=== PATIENT | male | born 1950 | race Caucasian/White ===

== ENCOUNTER → 2021-02-24 09:36 | Outpatient (BNVA) | payer OTHER, SELFPAY | PROVIDERS: Visit Provider Urology ==

== ENCOUNTER → 2021-03-26 13:09 | Outpatient (BNVA) | payer OTHER, SELFPAY | PROVIDERS: Visit Provider Urology ==

== ENCOUNTER → 2021-04-14 08:33 | Outpatient (BNVA) | payer OTHER, SELFPAY | PROVIDERS: Visit Provider Urology | DX: C61 Malignant neoplasm of prostate (principal) | CPT/HCPCS: 96402; J9217 ==

== ENCOUNTER 2021-05-18 07:39 | Outpatient (REF) | payer OTHER, SELFPAY ==
[2021-05-18 08:04] VITALS: BP 140/92; PULSE 75; RESP 16; TEMP 486.5; TEMP 907.7; O2SAT 97; BMI 29.9
[2021-05-18 08:36] VITALS: BP 136/95; PULSE 77; RESP 16; O2SAT 97
--- NOTE | 2021-05-18 08:40 | W.PM.OPN ---
Operative Note Operative Note Date of Service: 05/18/21 Narrative: Preoperative diagnosis: Prostate cancer Postoperative diagnosis: Prostate cancer Procedure: 1. Transrectal ultrasound-guided pudendal nerve block 2. Transrectal ultrasound-guided gold seed placement Surgeon: Dr. Tato Alvarenga Anesthetic: Local Indications for procedure: Prostate Cancer Procedure: After informed consent was verified, the patient was brought into the procedure area and lay left-hand side down on the table. Patient identity confirmed. Perioperative antibiotics confirmed. Gel was placed per rectum Ultrasound probe was placed per rectum A ultrasound-guided pudendal nerve block was performed using 10 cc of 1% lidocaine. 8 cc was placed at the base and 2 cc of the apex. 2 visicoil seed markers placed. 1 on the right, 1 on the left. The purpose is for triangulation. He tolerated the procedure well. Was able to ambulate to bathroom after 5 minutes. Printed instructions regarding antibiotic use and common side effects such as low-grade temperature and bleeding were given
== END 2021-05-18 07:40 | disposition home or self-care (01) ==
LOC: HO.MS 07:39
PROVIDERS: Visit Provider Urology
PROC: (CPT 55876; principal; 2021-05-18 08:00)
DX: C61 Malignant neoplasm of prostate (principal)
CPT/HCPCS: 55876; 76942; A4648

== ENCOUNTER → 2021-08-18 09:48 | Outpatient (BNVA) | payer OTHER, SELFPAY | PROVIDERS: Visit Provider Urology | DX: Z13.89 Encounter for screening for other disorder (principal) ==

== ENCOUNTER 2021-11-09 11:16 | Outpatient (REF) | payer OTHER, SELFPAY ==
[2021-11-09 12:29] LABS: Blood Urea Nitrogen 16 mg/dL (9-16); Estimated Glomerular Filt Rate > 60
[2021-11-09 12:53] LABS: Prostate Specific Antigen 0.17 ng/mL (<0.05-4.0)
[2021-11-15 12:02] LABS: Testosterone, Total 9 ng/dL (250-1100)
== END 2021-11-09 11:17 | disposition home or self-care (01) ==
LOC: HO.LAB 11:16
PROVIDERS: PCP Urology; Visit Provider Urology
DX: Z12.5 Encounter for screening for malignant neoplasm of prostate (principal); C61 Malignant neoplasm of prostate; R39.15 Urgency of urination
CPT/HCPCS: 36415; 82565; 84153; 84403; 84520

== ENCOUNTER 2022-03-07 08:16 | Outpatient (REF) | payer OTHER, SELFPAY ==
[2022-03-07 10:07] LABS: Prostate Specific Antigen 0.16 ng/mL (<0.05-4.0)
[2022-03-13 13:39] LABS: Testosterone, Total 189 ng/dL (250-1100)
== END 2022-03-07 08:17 | disposition home or self-care (01) ==
LOC: HO.LAB 08:16
PROVIDERS: Visit Provider Urology
DX: Z12.5 Encounter for screening for malignant neoplasm of prostate (principal); C61 Malignant neoplasm of prostate
CPT/HCPCS: 36415; 84153; 84403

== ENCOUNTER → 2022-03-22 08:48 | Outpatient (BNVA) | payer OTHER, SELFPAY | PROVIDERS: Visit Provider Urology | DX: C61 Malignant neoplasm of prostate (principal) | CPT/HCPCS: 99212 ==

== ENCOUNTER 2022-06-23 09:42 | Outpatient (REF) | payer OTHER, SELFPAY ==
--- NOTE | ~2022-06-23 | XR_ITS ---
EXAMINATION: XR CHEST 2 VIEWS CLINICAL INFORMATION: Follow-up pleural effusion. COMPARISON: Chest radiographs dated 04/15/2022. TECHNIQUE: Frontal and lateral views of the chest were obtained. FINDINGS: The heart, great vessels, pulmonary vasculature and mediastinum are normal. A right pericardial fat pad is again seen. A very small right pleural effusion is again seen. No left pleural effusion is seen. No infiltrate or congestive heart failure is seen. There is no acute osseous abnormality. There is multi-level thoracic degenerative change. XR/XR chest 2V IMPRESSION: A very small right pleural effusion is redemonstrated.
== END 2022-06-23 09:43 | disposition home or self-care (01) ==
LOC: HO.XRAY 09:42
PROVIDERS: Visit Provider Internal Medicine
DX: J90 Pleural effusion, not elsewhere classified (principal); R05.9 Cough, unspecified; F17.200 Nicotine dependence, unspecified, uncomplicated
CPT/HCPCS: 71046; 99202

== ENCOUNTER 2022-07-11 09:06 | Outpatient (REF) | payer OTHER, SELFPAY ==
[2022-07-11 11:15] LABS: Prostate Specific Antigen 0.19 ng/mL (<0.05-4.0)
== END 2022-07-11 09:07 | disposition home or self-care (01) ==
LOC: HO.LAB 09:06
PROVIDERS: Visit Provider Urology
DX: C61 Malignant neoplasm of prostate (principal); Z12.5 Encounter for screening for malignant neoplasm of prostate
CPT/HCPCS: 36415; 84153

== ENCOUNTER 2022-07-20 11:45 | Outpatient (REF) | payer OTHER, SELFPAY | END 2022-07-20 11:46 | disposition home or self-care (01) | LOC: HO.RESP 11:45 | PROVIDERS: Visit Provider Internal Medicine | DX: J90 Pleural effusion, not elsewhere classified (principal); C61 Malignant neoplasm of prostate; R05.9 Cough, unspecified; F17.200 Nicotine dependence, unspecified, uncomplicated; Z79.899 Other long term (current) drug therapy | CPT/HCPCS: 94010; 94727; 94729; 99212 ==

== ENCOUNTER → 2022-08-16 08:57 | Outpatient (BNVA) | payer OTHER, SELFPAY | PROVIDERS: Visit Provider Internal Medicine | DX: J44.9 Chronic obstructive pulmonary disease, unspecified (principal); J90 Pleural effusion, not elsewhere classified; R05.9 Cough, unspecified; F17.210 Nicotine dependence, cigarettes, uncomplicated | CPT/HCPCS: 99212 ==

== ENCOUNTER 2022-10-27 09:11 | Outpatient (REF) | payer OTHER, SELFPAY ==
[2022-10-27 11:28] LABS: Prostate Specific Antigen 0.21 ng/mL (<0.05-4.0)
== END 2022-10-27 09:12 | disposition home or self-care (01) ==
LOC: HO.LAB 09:11
PROVIDERS: Visit Provider Urology
DX: Z12.5 Encounter for screening for malignant neoplasm of prostate (principal); J90 Pleural effusion, not elsewhere classified; J44.9 Chronic obstructive pulmonary disease, unspecified; R05.9 Cough, unspecified; C61 Malignant neoplasm of prostate; F17.200 Nicotine dependence, unspecified, uncomplicated
CPT/HCPCS: 36415; 84153; 99212

== ENCOUNTER 2022-10-27 09:11 | Outpatient (AMB) | payer OTHER, SELFPAY ==
[2022-10-27 09:30] VITALS: BP 134/68; PULSE 64; O2SAT 96; BMI 31.5
--- NOTE | 2022-10-27 09:30 | MHC.OFFVIS ---
Intake Vital Signs 10/27/22 09:30 Height 6 ft Weight 232 lb 9.403 oz BMI 31.5 BP 134/68 Blood Pressure Location Lt brachial Position Sitting Pulse 64 Pulse Source Pulse Oximeter Pulse Oximetry (%) 96 Oxygen Delivery Method Room Air Intake Visit Reasons: Cough Intake Note: Pt presents today with his for a fu and reports everything is going well. They have a few questions about his prescriptions. His would like to know if he is ready for a lower prescription of his nicotine patches. Allergies No Known Allergies Allergy (Verified 10/27/22 10:03) Medication List - Last Reconciled 10/27/22 by Pool Barrera MD budesonide-formoterol 160-4.5 mcg/actuation (Symbicort) 2 puffs inhalation Q12H 30 days finasteride 5 mg PO DAILY 90 days lisinopril 20 mg PO DAILY lisinopril-hydrochlorothiazide 20-12.5 mg 1 tab PO DAILY nicotine 1 patch transdermal DAILY 28 days pravastatin 40 mg PO DAILY vitamins A,C,R-aeqk-xmjqlu 4,296 mcg-226 mg-90 mg (PreserVision AREDS) 1 cap PO BID Do you need a note to return to daycare/school/sports/work: No HPI Cough HPI Details THIS 72 YEARS OLD , WITH PAST HISTORY OF SMOKING, COMES FOR FOLLOW-UP, AFTER 3 MONTHS. SINCE HIS LAST VISIT HE HAS QUIT SMOKING WITH THE HELP OF NICOTINE PATCH 21 MG DAILY. HE STILL PICKS UP THE CIGARETTE EVERY NOW AND THEN TO SMOKE. BREATHING STATUS HAS BEEN MUCH BETTER, HE STILL HAS MILD INTERMITTENT COUGH WITHOUT ANY. EXPECTORATION HE STILL GETS SHORT OF BREATH ON EXERTION LIKE WALKING A FEW BLOCKS OR CLIMBING STAIRS. THE MAIN ISSUE IS THAT HE DID NOT GET HIS SYMBICORT THROUGH [place] [facility], AND HAS BEEN BUYING FROM THE LOCAL PHARMACY, WHICH IS VERY COSTLY. [facility] Medical History COPD (chronic obstructive pulmonary disease) Cough Elevated PSA HTN (hypertension) Hx of colonic polyps Hyperlipidemia Inguinal hernia Obesity Pleural effusion Prostate nodule Smoker Thrombocytopenia Surgical History History of hernia repair Social History Patient Tobacco Use Status: Current everyday Tobacco user Cigarettes Per Day: 1 Review of Systems Const All systems reviewed & are unremarkable except as noted in HPI and below Eyes Reports no additional complaints ENT Reports nasal congestion (Mild off and on) and Reports other (Mild hearing impairment) Card Denies chest pain, Denies irregular heart rhythm and Denies leg edema Resp Reports as per HPI GI Reports no additional complaints Reports other (History of prostate cancer,) Musc Reports no additional complaints Skin/Breast Reports system reviewed and no additional complaints, except as documented Neuro Reports no additional complaints Psych Reports no additional complaints Endo Reports no additional complaints Aller/Immun Reports no additional complaints Physical Exam Vital Signs: Last Vital Signs Pulse 64 10/27/22 09:30 BP 134/68 10/27/22 09:30 Pulse Ox 96 10/27/22 09:30 Oxygen Delivery Method Room Air 10/27/22 09:30 BMI result Body Mass Index 31.5 Const General: comfortable, no acute distress, alert and awake Orientation/consciousness: patient oriented x3 HEENT Head: Yes normal to inspection General nose exam: No nasal polyps present and No nasal discharge present Face and sinus: Yes sinuses nontender Mouth: oropharynx normal Throat: Yes posterior oropharynx normal Eyes General: appearance normal, both eyes and all related structures Neck Neck: Yes normal visual inspection, Yes no lymphadenopathy, Yes trachea midline and Yes no JVD Thyroid: Thyroid normal Chest Chest palpation & inspection: normal inspection of the chest, normal palpation of entire chest wall and no tenderness Resp Other: Percussion note is resonant. Breath sounds are moderately distant with prolonged expiratory phase. No wheezes. Or crepitations are heard. Cardio Palpation: normal PMI Rate: regular rate Rhythm: regular rhythm Heart sounds: no gallops and no murmurs GI Palpation (GI): Soft to palpation, nontender, No hepatosplenomegaly present and no masses Auscultation: normal bowel sounds Back/Spine/Pelvis Thoracic/Lumbar Spine: thoracic and lumbar spine normal to inspection Skin General skin exam: no rashes or lesions noted Neuro General: patient oriented x3 and no focal motor deficits Cranial nerves: Yes CN's II-XII intact bilaterally Extrem General: Yes normal to inspection, Yes no clubbing, cyanosis or edema and Yes no calf tenderness Psych Appearance: grossly normal and well kempt Speech and movement: Normal speech and movement present Assessment & Plan Assessment & Plan (1) COPD (chronic obstructive pulmonary disease): Comment: This gentleman has MODERATELY SEVERE OBSTRUCTIVE AIRWAY DISORDER. [place] : Symptomatically, he is definitely improved with the use of Symbicort 2 puffs b.i.d.. I advised him to continue. Will send a script to [place] [facility] and hope they will cover the medicine and he can get without out of pocket charge. Code(s): J44.9 - Chronic obstructive pulmonary disease, unspecified (2) Cough: Comment: HIS COUGH IS CHRONIC MOST LIKELY RELATED TO SMOKING ( SMOKERS COUGH) Since he quit smoking his cough is only minimal. Code(s): R05.9 - Cough, unspecified (3) Smoker: Comment: LONG-TIME SMOKER, CURRENTLY SMOKING ABOUT 1 PACK OF CIGARETTES A DAY. SINCE HIS LAST VISIT WITH THE HELP OF NICOTINE PATCH, HE HAS BEEN ABLE TO QUIT, HE STILL HAS URGE TO SMOKE EVERY NOW AND THEN. ADVISED TO REDUCE NICOTINE PATCH TO 14 MG A DAY AND CONTINUE , UNTIL HE IS FULLY CONFIDENT THAT HE WOULD NOT SMOKE. Code(s): F17.200 - Nicotine dependence, unspecified, uncomplicated Coding Level of Care Code Est Pt Level 3 (25263) Diagnoses COPD (chronic obstructive pulmonary disease) J44.9 Cough R05.9 Smoker F17.200
== END 2022-10-27 10:04 | disposition home or self-care (01) ==
PROVIDERS: PCP Internal Medicine; Visit Provider Internal Medicine
DX: J44.9 Chronic obstructive pulmonary disease, unspecified (principal); R05.9 Cough, unspecified; F17.200 Nicotine dependence, unspecified, uncomplicated
CPT/HCPCS: 99213

== ENCOUNTER 2022-11-22 13:26 | Outpatient (AMB) | payer OTHER, SELFPAY ==
--- OUTSIDE RECORDS SUMMARY | 2022-11-22 13:28 | XMS_ITS | Continuity of Care Document ---
Author Name Unknown Organization [facility] Address [address] [place] [id number]- Care Team Providers Care Material Mover Name Role Phone Cliff NICK, Asael Vasquez Primary Care Physician [phone] [place] [facility] [place] [facility] [address] [place] [id number]- Discharge Disposition: A-D/C Home Attending Physician: Edgar Dhaliwal MD Admitting Physician: Edgar Dhaliwal MD Referring Physician: Tato Alvarenga MD Allergies, Adverse Reactions, Alerts No Known Allergies Medications Gloria Back & Body By Mouth, Every 6 hours, PRN Pain , Mild, 0 Refills, Maintenance, 04/12/21 12:11:00 EST, Partial fill upon patient request if the prescription is for a schedule II opioid drug. Start Date: 04/12/21 Status: Ordered bicalutamide 50 mg oral tablet 1 tablet = 50 mg, By Mouth, Daily, 0 Refills, Maintenance, 04/12/21 12:10:00 EST, Partial fill uponpatient request if the prescription is for a schedule II opioid drug. Start Date: 04/12/21 Status: Ordered Flomax 0.4 mg oral capsule 0.4 mg, 1, capsule, By Mouth, Daily, # 30 capsule, Refills 0, Tot. Refills 0, Maintenance, :00:00 EDT, Print Requisition, Partial fill upon patient request if the prescription is for a schedule II opioid drug. Start Date: 08/29/20 Status: Ordered hydrochlorothiazide 12.5 mg oral tablet 1 tablet = 12.5 mg, By Mouth, Daily, 0 Refills, Maintenance, 04/12/21 12:10:00 EST, Partial fill upon patient request if the prescription is for a schedule II opioid drug. Start Date: 04/12/21 Status: Ordered Lisinopril = 20 mg, By Mouth, Daily, 0 Refills, Maintenance, 04/12/21 12:09:00 EST, Partial fill upon patient request if the prescription is for a schedule II opioid drug. Start Date: 04/12/21 Status: Ordered pravastatin 40 mg oral tablet 1 tablet = 40 mg, By Mouth, Daily, 0 Refills, Maintenance, 04/12/21 12:10:00 EST, Partial fill uponpatient request if the prescription is for a schedule II opioid drug. Start Date: 04/12/21 Status: Ordered PreserVision AREDS 2 By Mouth, 2 times a day, 0 Refills, Maintenance, 04/12/21 12:11:00 EST, Partial fill upon patient request if the prescription is for a schedule II opioid drug. Start Date: 04/12/21 Status: Ordered Sinus Maximum Strength By Mouth, PRN Sinus Symptoms, 0 Refills, Maintenance, 04/12/21 12:12:00 EST, Partial fill upon patient request if the prescription is for a schedule II opioid drug. Start Date: 04/12/21 Status: Ordered Problem List Condition Effective Dates Status Health Status Inform ant Obese class I(Confirmed) Active Vital Signs Most recent to oldest [Reference Range]: 1 Height 178.5 cm (04/12/21 9:16 AM) Weight 97.2 kg (04/12/21 9:16 AM) Oxygen Saturation [94-100 %] 98 % (04/12/21 9:16 AM) Pulse Rate [55-90 bpm] 73 bpm (04/12/21 9:16 AM) Body Mass Index [18.5-24.99] 30.51 *>HHI* (04/12/21 9:16 AM) Blood Pressure [90-138/55-84 mm Hg] 113/ 65mm Hg (04/12/21 9:16 AM) Temperature [96.8-100.4 DegF] 96.9 DegF (04/12/21 9:16 AM) Mode of Delivery (Oxygen) Room air (04/12/21 9:16 AM) Blood pressure sites Arm, left (04/12/21 9:16 AM) Temperature Route Temporal (04/12/21 9:16 AM) Dry Weight 97.2 kg (04/12/21 9:16 AM) Weight Obtained Via Standing scale (04/12/21 9:16 AM) Dry Weight Obtained Via Standing scale (04/12/21 9:16 AM) Social History Social History Type Response Smoking Status Current every day earl chavez entered on: 04/14/16 Sex Care Team Personnel Name: Asael Coronado MD Address: [address] [place] [address]-
--- OUTSIDE RECORDS SUMMARY | 2022-11-22 13:28 | XMS_ITS | Continuity of Care Document ---
Author Name Unknown Organization [facility] Address [address] [place] [address]- Care Team Providers Care Disease Control Inspector Name Role Phone Cliff NICK, Asael Vasquez Primary Care Physician Encounter [facility] [place] Date(s): 03/30/21 - 04/29/21 [facility] [address] [place] [address]- Attending Physician: Nicanor Mccall Admitting Physician: AdmNicanor hermosillo Referring Physician: Admtr, Ar8 Allergies, Adverse Reactions, Alerts No Known Allergies [...] Status Inform ant Obese class I(Confirmed) Active Social History Social History Type Response Smoking Status Current every day earl chavez entered on: 04/14/16 Sex
--- OUTSIDE RECORDS SUMMARY | 2022-11-22 13:28 | XMS_ITS | Continuity of Care Document ---
Author Name Unknown Organization [facility] Address [address] [place] [address]- Care Team Providers Care Waiter/Waitress First Class Name Role Phone Cliff NICK, Asael Vasquez Primary Care Physician [phone] [place] [facility] [place] 04/12/21 - 05/12/21 [facility] Care [address] [place] [address] Allergies, Adverse Reactions, Alerts No Known Allergies [...]
--- NOTE | 2022-11-22 13:35 | A.OFFVIS_ITS ---
Intake Intake Visit Reasons: 4m/PSA(set) Intake Note: Patient is present for Telephone PSA Urology Med: Finasteride Antibiotic Allergy: None Blood Thinner: None Pharmacy: [facility] Allergies No Known Allergies Allergy (Verified 11/22/22 13:36) HPI HPI Comments History of Present Illness Details Ephraim is a very pleasant male. He is a patient of Dr Coronado. He is seen in the office today for the following urologic conditions. - prostate cancer Telemedicine Evaluation 15 min Consultation Doximity Noel Video attempted PSA remains well controlled - 0.2 Continue 4 month follow-up till 2023 Prostate cancer 07/07 Intermediate Risk Grade Group 3- EXBRT 08/08 with short term hormones PSA 03/09 7.5 F 9%, 11/08 0.2 T9, 03/10 0.2 T 190, 07/10 0.2, 11/09 0.2 Initial evaluation for elevated PSA 04/08 Prostate biopsy performed 07/07 - primary Neha score 4+3 Neha score 3+3 5% right apex medial, 3+4 90% right apex lateral, 80% right mid lateral, 60% right mid medial, 80% right base lateral, 4+3 70% right base medial Number of positive cores 6 - % of tissue involved 32% Perineural invasion positive, LVI negative Imaging - 03/09 MRI CDI - right apical zone 1.5 cm PI-RADS 5 no evidence of extracapsular extension External Beam Radiation - 08/08 Dr Dhaliwal Therapeutic plan - PSA followup [facility] Medical History COPD (chronic obstructive pulmonary disease) Cough Elevated PSA HTN (hypertension) Hx of colonic polyps Hyperlipidemia Inguinal hernia Obesity Pleural effusion Prostate nodule Smoker Thrombocytopenia Surgical History History of hernia repair Social History Patient Tobacco Use Status: Current everyday Tobacco user Cigarettes Per Day: 1 Review of Systems Const All systems reviewed & are unremarkable except as noted in HPI and below Reports no additional complaints Resp Reports no additional complaints GI Reports no additional complaints Reports as per HPI Musc Reports no additional complaints Physical Exam Telemedicine evaluation Appropriate responses Regular breathing rate and rhythm HEENT Head: Yes normal to inspection Ears: hearing grossly normal bilaterally Eyes General: appearance normal, both eyes and all related structures Neck Neck: Yes normal visual inspection Chest Chest palpation & inspection: normal inspection of the chest Resp Effort & Inspection: normal respiratory effort and able to speak in complete sentences Assessment & Plan Assessment & Plan (1) Prostate cancer: Comment: 07/07 intermediate risk prostate cancer 08/08 EXBRT w 6m GnRH Code(s): C61 - Malignant neoplasm of prostate Plan Four month follow-up Orders: Orders Prostate Specific Antigen 4 Months C61 - Malignant neoplasm of prostate Patient Instructions: Imaging studies, laboratory and physical exam results were discussed and reviewed in detail. No major barriers to patient understanding were identified. An opportunity to ask questions regarding the treatment plan was provided. All questions were answered. The patient expressed understanding and agreement with the above treatment plan. The patient is aware they should contact our office by phone for worsening of their current condition or the appearance of new urologic symptoms. Compliance is encouraged with any medications and followup testing that is ordered. It is a privilege to participate in the urologic care of your patient. If you have any questions or concerns regarding treatment for the above conditions, or other urologic issues, please do not hesitate to contact me. The office telephone contact is [phone]. This note is constructed using voice recognition software. While every effort has been made to ensure accuracy lockstitch lining maker errors may have been included. Yours sincerely, Dr Tato Alvarenga MD, [facility] - Urology Providers of Expert, Compassionate Care for the Genitourinary System Telehealth Telehealth Location of provider rendering services: practice address Location of patient: address on file Patient Identification confirmed using: Name, : Yes Telehealth method: video Patient verbally consented to treatment: Yes Patient verbally consented to billing insurance company: Yes Patient informed of any privacy concerns related to visit: Yes Coding Level of Care Code Tele Est Pt Level 3 (01259) Diagnoses Prostate cancer C61
== END 2022-11-22 14:19 | disposition home or self-care (01) ==
LOC: HO.HUSH 13:26
PROVIDERS: Visit Provider Urology
DX: C61 Malignant neoplasm of prostate (principal)
CPT/HCPCS: 99213

== ENCOUNTER → 2022-11-22 13:26 | Outpatient (BNVA) | payer OTHER, SELFPAY | PROVIDERS: Visit Provider Urology ==

== ENCOUNTER 2023-01-17 07:39 | Day surgery (SDC) | payer OTHER, SELFPAY ==
[2023-01-13 10:44] VITALS: BMI 31.2
--- NOTE | 2023-01-17 08:02 | ECG_ITS ---
Test Reason : pre op Blood Pressure : / mmHG Vent. Rate : 069 BPM Atrial Rate : 069 BPM P-R Int : 190 ms QRS Dur : 150 ms QT Int : 480 ms P-R-T Axes : 051 -76 092 degrees QTc Int : 514 ms Sinus rhythm with Premature supraventricular complexes and with occasional Premature ventricular complexes Right bundle branch block Left anterior fascicular block Bifascicular block Left ventricular hypertrophy with repolarization abnormality ( R in aVL , Romhilt-Polanco ) Abnormal ECG No previous ECGs available Referred By: Bridger Kolb Electronically Signed By:AGUS STEPHENS MD
[2023-01-17 08:05] VITALS: BP 145/88; PULSE 73; RESP 16; TEMP 36.1; O2SAT 96; BMI 30.6
[2023-01-17 08:19] LABS: Hematocrit 42.2 % (42.0-52.0); Hemoglobin 13.9 g/dl (14.0-18.0); Mean Corpuscular HGB Conc 32.9 g/dl (31.0-36.0); Mean Corpuscular Hemoglobin 30.3 pg (27.0-33.0); Mean Corpuscular Volume 92.1 fL (80.0-98.0); Mean Platelet Volume 10.3 fL (9.4-12.4); Platelet Count 242 X10*3/uL (160-400); Red Blood Count 4.58 X10*6/uL (4.60-5.80); Red Cell Distribution Width 14.3 % (11.0-16.0); White Blood Count 5.5 X10*3/uL (4.8-10.8)
--- NOTE | 2023-01-17 08:20 | P.CONAN_ITS ---
Documented by User: Jamila Duarte NP 01/16/23 09:46 HPI - Anesthesia Eval Consult details Narrative: 72yo M for Colonoscopy PMFSH Active Problems Active Problems: All Active Problems BPH loc w urin obs/LUTS (Acute) Prostate cancer (Acute) COPD (chronic obstructive pulmonary disease) (Acute) Pleural effusion (Acute) Cough (Acute) Smoker (Acute) Past Medical History Medical History COPD (chronic obstructive pulmonary disease) Pleural effusion Cough Smoker Thrombocytopenia Obesity HTN (hypertension) Hyperlipidemia Hx of colonic polyps Inguinal hernia Elevated PSA Prostate nodule Surgical History Surgical History (Updated 01/13/23 @ 10:38 by Lucila Loya RN) H/O colonoscopy History of hernia repair Social History Social History Patient Tobacco Use Status: Current everyday Tobacco user Tobacco use type: Cigarette Cigarettes Per Day: 5 Years Smoked: 50 Smoked in Last 30 Days: Yes Use of substances other than those prescribed or required for medical reasons: Yes Substance Use Frequency: Occasionally Are you DNR?: No Advance Directives: No Advance Directives Information Provided: Yes Recently lost weight without trying: No Nutrition Risks: No Nutritional Risk Poor oral hygiene: No Meds Allergies Allergy/AdvReac Type Severity Reaction Status Date / Time No Known Allergies Allergy Verified 11/22/22 13:36 Home Medications Medication Instructions Recorded Confirmed Last Taken Type lisinopril 20 mg tablet 20 mg PO DAILY 06/23/22 08/16/22 Unknown History pravastatin 40 mg tablet 40 mg PO DAILY 06/23/22 01/13/23 Unknown History vitamins A,C,V-ygxy-xltigc 4,296 1 cap PO BID 08/16/22 01/13/23 Unknown History mcg-226 mg-90 mg capsule (PreserVision AREDS) lisinopril 20 1 tab PO DAILY 10/27/22 01/13/23 Unknown History mg-hydrochlorothiazide 12.5 mg tablet Exam Exam Date and Time: January 16, 2023 0944 Height,Weight and Vital Signs: Height 6 ft Weight 104.326 kg Assessment and Plan Assessment Anesthesia Assessment: Chart Reviewed Documented by User: Eli Killian DO 01/17/23 08:53 HPI - Anesthesia Eval Consult details Narrative: 72yo M for Colonoscopy. Ectopy seen on telemetry in pre-op. Patient is asymptomatic. EKG performed - PVCs, LVH, and bifascicular block (RBBB, LAFB). Discussed with patient regarding follow-up with PCP for possible further cardiac work-up. [facility] Past Medical History Medical History COPD (chronic obstructive pulmonary disease) Pleural effusion Cough Smoker Thrombocytopenia Obesity HTN (hypertension) Hyperlipidemia Hx of colonic polyps Inguinal hernia Elevated PSA Prostate nodule Surgical History Surgical History (Updated 01/13/23 @ 10:38 by Lucila Loya RN) H/O colonoscopy History of hernia repair History of Problems with Anesthesia: No Social History Social History Patient Tobacco Use Status: Current everyday Tobacco user Tobacco use type: Cigarette Cigarettes Per Day: 5 Years Smoked: 50 Smoked in Last 30 Days: Yes Use of substances other than those prescribed or required for medical reasons: Yes Substance Use Frequency: Occasionally Are you DNR?: No Advance Directives: No Advance Directives Information Provided: Yes Recently lost weight without trying: No Nutrition Risks: No Nutritional Risk Poor oral hygiene: No Meds Allergies Allergy/AdvReac Type Severity Reaction Status Date / Time No Known Allergies Allergy Verified 11/22/22 13:36 Home Medications Medication Instructions Recorded Confirmed Last Taken Type lisinopril 20 mg tablet 20 mg PO DAILY 06/23/22 08/16/22 Unknown History pravastatin 40 mg tablet 40 mg PO DAILY 06/23/22 01/13/23 Unknown History vitamins A,C,S-poow-eesrif 4,296 1 cap PO BID 08/16/22 01/13/23 Unknown History mcg-226 mg-90 mg capsule (PreserVision AREDS) lisinopril 20 1 tab PO DAILY 10/27/22 01/13/23 Unknown History mg-hydrochlorothiazide 12.5 mg tablet Exam Exam Date and Time: January 17, 2023 0820 Height,Weight and Vital Signs: Height 6 ft Weight 104.326 kg Vital Signs Temperature 97.0 F 01/17/23 08:05 Pulse Rate 73 01/17/23 08:05 Respiratory Rate 16 01/17/23 08:05 Blood Pressure 145/88 H 01/17/23 08:05 Pulse Oximetry 96 01/17/23 08:05 Oxygen Delivery Method Room Air 01/17/23 08:05 Temperature 97.0 F 01/17/23 08:05 Pulse Rate 73 01/17/23 08:05 Respiratory Rate 16 01/17/23 08:05 Blood Pressure 145/88 H 01/17/23 08:05 Pulse Oximetry 96 01/17/23 08:05 Oxygen Delivery Method Room Air 01/17/23 08:05 Airway Mallampati Class: II TM Dist: >3cm Neck ROM: Full Denture: Upper Heart: S1S2 Lungs: Diminished bilaterally Assessment and Plan Assessment Anesthesia Assessment: Anesthesia Plan Discussed and Chart Reviewed Final Anesthetic Review History of Problems with Anesthesia: No NPO: Yes ASA Class: III Final Preanesthetic Review: No Changes in Pt Med Stat, Meds/Allgs Chart Reviewed, Consent Obtained/Reviewed and Anes Risks/Benef Reviewed Patient Risk: Intermediate Procedure Risk: Low Anesthetic Plan Anesthetic Plan: MAC: and Agree w/ Assess. and Plan Disposition: Standard PACU
[2023-01-17] MEDS: Lactated Ringers 1,000 ML 100 ML IVCONT (08:51)
--- NOTE | 2023-01-17 09:12 | MHC.SHP ---
Pre-Procedural Eval Section A Date of Service: 01/17/23 Section B Chief Complaint: screening Details of Present Illness: see H&P no changes Relevant Family History (Specify if Yes): No Relevant Social History: None Present Medications: see Short Stay Collaborative assessment Medical History: No relevant PMH History of Previous Operations: No relevant previous surgery Allergies: Allergies Allergy/AdvReac Type Severity Reaction Status Date / Time No Known Allergies Allergy Verified 11/22/22 13:36 Review of Systems Sugical H&P ROS: Negative: Constitution, Cardiovascular, Respiratory, Neurological, Psychiatric, Hem-Onc, Allergic/Immunologic, Gastrointestinal, Genitourinary, Musculoskeletal, Integumentary, Endocrine and Eyes/Ears/Nose/Throat Exam Surgical H&P Exam: Normal: HEENT, Normal: Heart, Normal: Lungs, Normal: Extremities, Normal: Abdomen, Normal: Skin and Normal: Neurological Plan Diagnosis/Plan: Unchanged I have reviewed the history and physical and performed a pertinent physical examination on my patient. No changes have occurred unless specified. Time Spent With Patient Time: Total time managing care of this patient today ____ minutes.
[2023-01-17 09:40] VITALS: BP 106/63; PULSE 62; RESP 16; TEMP 36.5; O2SAT 96
--- NOTE | 2023-01-17 09:49 | P.BOP_ITS ---
Brief Operative Note Date of Service: 01/17/23 Pre-op diagnosis: see H&P no changes Post-op diagnosis: same Procedure: colonoscopy Surgeon: Amrit Kong MD Anesthesia: MAC Was an Financial Services Officer used for this Procedure?: No Estimated blood loss (mL): 0 Pathology: other Condition: stable Disposition: PACU
[2023-01-17 09:54] VITALS: BP 109/76; PULSE 64; RESP 16; TEMP 36.5; O2SAT 96
--- NOTE | 2023-01-17 10:20 | OP_ITS ---
DATE OF SERVICE: 01/17/2023 SURGEON: Amrit Kong MD INDICATIONS: Colon cancer screening. PREOPERATIVE DIAGNOSIS: POSTOPERATIVE DIAGNOSIS: PROCEDURE PERFORMED: Colonoscopy to the terminal ileum. ESTIMATED BLOOD LOSS: COMPLICATIONS: ANESTHESIA: Medications, monitored anesthesia care. ASSISTANTS: SPECIMENS: DESCRIPTION OF PROCEDURE: The history and physical performed. The risks and benefits of the procedure were explained to the patient. An informed consent was obtained. The patient was placed in the left lateral decubitus position. A digital rectal exam was performed and was found to be normal. The Olympus pediatric video colonoscope was introduced into the rectum and advanced to the cecum. The cecum was identified by transillumination, palpation, and identification of the ileocecal valve. Examination was performed. The scope was removed. He tolerated the procedure well and was taken to recovery area in stable condition. FINDINGS: The terminal ileum was examined and appeared normal. The visualized colonic mucosa was normal. The quality of the prep was good. There was mild sigmoid diverticulosis. Retroflexed examination was normal. There were changes consistent with possible radiation in the rectum with telangiectasias but no active colitis. IMPRESSION: Normal colonoscopy. RECOMMENDATION: 1. Repeat colonoscopy is recommended in 10 years. 2. Follow up as needed. MD CAMILA Kothari/IRENEL / [phone]
== END 2023-01-17 10:34 | disposition home or self-care (01) ==
PROVIDERS: Nurse Practitioner; Visit Provider Internal Medicine Gastroenterology
PROC: 0DJD8ZZ Inspection of Lower Intestinal Tract, Via Natural or Artificial Opening Endoscopic (ICD-10-PCS; CPT 45378; principal; 2023-01-17 09:00)
DX: Z12.11 Encounter for screening for malignant neoplasm of colon (principal); Z86.010 Personal history of colon polyps; K57.30 Diverticulosis of large intestine without perforation or abscess without bleeding; J44.9 Chronic obstructive pulmonary disease, unspecified; I10 Essential (primary) hypertension; E78.5 Hyperlipidemia, unspecified; D69.6 Thrombocytopenia, unspecified; J90 Pleural effusion, not elsewhere classified; E66.9 Obesity, unspecified; Z68.31 Body mass index [BMI] 31.0-31.9, adult; F17.210 Nicotine dependence, cigarettes, uncomplicated; Z79.51 Long term (current) use of inhaled steroids; Z79.1 Long term (current) use of non-steroidal anti-inflammatories (NSAID); Z79.899 Other long term (current) drug therapy
CPT/HCPCS: 45378; 36415; 85027; 93005

== ENCOUNTER 2023-04-11 10:12 | Outpatient (REF) | payer OTHER, SELFPAY ==
[2023-04-11 12:26] LABS: Prostate Specific Antigen 0.13 ng/mL (<0.05-4.0)
== END 2023-04-11 10:13 | disposition home or self-care (01) ==
LOC: HO.LAB 10:12
PROVIDERS: Visit Provider Urology
DX: C61 Malignant neoplasm of prostate (principal); Z12.5 Encounter for screening for malignant neoplasm of prostate
CPT/HCPCS: 36415; 84153

== ENCOUNTER 2023-04-19 09:07 | Outpatient (AMB) | payer OTHER, SELFPAY ==
[2023-04-19 09:14] VITALS: BP 104/82; PULSE 82; O2SAT 98; BMI 33.2
--- NOTE | 2023-04-19 09:14 | A.OFFVIS_ITS ---
Intake Vital Signs 04/19/23 09:14 Height 6 ft Weight 244 lb 11.41 oz BMI 33.2 BP 104/82 Blood Pressure Location Lt brachial Position Sitting Pulse 82 Pulse Source Pulse Oximeter Pulse Oximetry (%) 98 Oxygen Delivery Method Room Air Intake Visit Reasons: Cough Intake Note: pt is here for follow up and states he has been having some shortness of breath, but has had a cold x6 weeks, which has been off and on. not much production. pt feels that Wixela is not hleping as much and states he is getting little spots in his mouth. 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 He has history of long-time smoking, with chronic obstructive pulmonary disease. He had quit almost completely but but still smokes 1 or 2 cigarettes a day. Initially with the addition of Symbicort his cough got much better and shortness of breath had improved. Since his last visit Symbicort was changed to Wixela, 250-50 1 inhalation b.i.d.. He complains that this is not as effective as Symbicort, and according to his w jace he has some white spots in his mouth every now and then. He continues to have some cough especially in the morning or at night, which is mostly nonproductive. He gets short of breath on walking fast or up Hill or climbing 1 flight of stairs. [facility] Medical History COPD (chronic obstructive pulmonary disease) Pleural effusion Cough Smoker Thrombocytopenia Obesity HTN (hypertension) Hyperlipidemia Hx of colonic polyps Inguinal hernia Elevated PSA Prostate nodule Surgical History H/O colonoscopy History of hernia repair Social History Patient Tobacco Use Status: Current everyday Tobacco user Tobacco use type: Cigarette Cigarettes Per Day: 5 Years Smoked: 50 Review of Systems Const All systems reviewed & are unremarkable except as noted in HPI and below Eyes Reports no additional complaints ENT Reports nasal congestion (Mild off and on) and Reports other (Mild hearing impairment) Card Denies chest pain, Denies irregular heart rhythm and Denies leg edema Resp Reports as per HPI GI Reports no additional complaints Reports other (History of prostate cancer,) Musc Reports no additional complaints Skin/Breast Reports system reviewed and no additional complaints, except as documented Neuro Reports no additional complaints Psych Reports no additional complaints Endo Reports no additional complaints Aller/Immun Reports no additional complaints Physical Exam Vital Signs: Last Vital Signs Pulse 82 04/19/23 09:14 BP 104/82 04/19/23 09:14 Pulse Ox 98 04/19/23 09:14 Oxygen Delivery Method Room Air 04/19/23 09:14 BMI result Body Mass Index 33.2 Const General: comfortable, no acute distress, alert and awake Orientation/consciousness: patient oriented x3 HEENT Head: Yes normal to inspection General nose exam: No nasal polyps present and No nasal discharge present Face and sinus: Yes sinuses nontender Mouth: oropharynx normal Throat: Yes posterior oropharynx normal Eyes General: appearance normal, both eyes and all related structures Neck Neck: Yes normal visual inspection, Yes no lymphadenopathy, Yes trachea midline and Yes no JVD Thyroid: Thyroid normal Chest Chest palpation & inspection: normal inspection of the chest, normal palpation of entire chest wall and no tenderness Resp Other: Percussion note is resonant. Breath sounds are moderately distant with prolonged expiratory phase. No wheezes. A few fine crepitations over the right base, Cardio Palpation: normal PMI Rate: regular rate Rhythm: regular rhythm Heart sounds: no gallops and no murmurs GI Palpation (GI): Soft to palpation, nontender, No hepatosplenomegaly present and no masses Auscultation: normal bowel sounds Back/Spine/Pelvis Thoracic/Lumbar Spine: thoracic and lumbar spine normal to inspection Skin General skin exam: no rashes or lesions noted Neuro General: patient oriented x3 and no focal motor deficits Cranial nerves: Yes CN's II-XII intact bilaterally Extrem General: Yes normal to inspection, Yes no clubbing, cyanosis or edema and Yes no calf tenderness Psych Appearance: grossly normal and well kempt Speech and movement: Normal speech and movement present Assessment & Plan Assessment & Plan (1) COPD (chronic obstructive pulmonary disease): Comment: This gentleman has MODERATELY SEVERE OBSTRUCTIVE AIRWAY DISORDER. Symptomatically improved with the use of ICS/LABA , inhaler, but still has some residual cough. Code(s): J44.9 - Chronic obstructive pulmonary disease, unspecified Plan: Advised to continue using Wixela 250-51 inhalation b.i.d.. [place] the throat very thoroughly after using inhaler. May add small amount of Listerine of or vein ago are to the water for rinsing the throat. ProAir 2 puffs Q 4-6 hours only p.r.n.. (2) Cough: Comment: HIS COUGH IS CHRONIC MOST LIKELY RELATED TO SMOKING ( SMOKERS COUGH) Since he quit smoking his cough is improved . Code(s): R05.9 - Cough, unspecified Plan: Quit smoking completely. OK to use Robitussin syrup or use cough drops p.r.n.. ALSO ADVISE THAT HE SHOULD HAVE A VAPORIZER/HUMIDIFIER IN THE BEDROOM AT NIGHTTIME. (3) Smoker: Comment: LONG-TIME SMOKER, CURRENTLY SMOKING ABOUT 1 PACK OF CIGARETTES A DAY. SINCE HIS LAST VISIT WITH THE HELP OF NICOTINE PATCH, HE HAS BEEN ABLE TO QUIT, HE STILL SMOKES 1 OR 2 CIGARETTES PER DAY, AND I URGED HIM TO QUIT COMPLETELY. Code(s): F17.200 - Nicotine dependence, unspecified, uncomplicated Plan: as above (4) Pleural effusion: Comment: RESOLVED WITH MINIMAL FIBROTIC CHANGES AT THE RT. BASE . Code(s): J90 - Pleural effusion, not elsewhere classified Plan: ABOVE Coding Level of Care Code Est Pt Level 3 (96204) Diagnoses COPD (chronic obstructive pulmonary disease) J44.9 Cough R05.9 Smoker F17.200 Pleural effusion J90
== END 2023-04-19 09:33 | disposition home or self-care (01) ==
PROVIDERS: PCP Internal Medicine; Visit Provider Internal Medicine
DX: J44.9 Chronic obstructive pulmonary disease, unspecified (principal); R05.9 Cough, unspecified; F17.200 Nicotine dependence, unspecified, uncomplicated; J90 Pleural effusion, not elsewhere classified
CPT/HCPCS: 99213

== ENCOUNTER → 2023-04-19 09:07 | Outpatient (BNVA) | payer OTHER, SELFPAY | PROVIDERS: PCP Internal Medicine; Visit Provider Internal Medicine | DX: C61 Malignant neoplasm of prostate (principal); J44.9 Chronic obstructive pulmonary disease, unspecified; R05.9 Cough, unspecified; J90 Pleural effusion, not elsewhere classified; F17.210 Nicotine dependence, cigarettes, uncomplicated | CPT/HCPCS: 99212 ==

== ENCOUNTER 2023-04-19 13:28 | Outpatient (AMB) | payer OTHER, SELFPAY ==
--- NOTE | 2023-04-19 13:28 | MHC.OFFVIS ---
Intake Intake Visit Reasons: 4M PSA(set) Intake Note: Patient is Present for Telephone Follow Up PSA Urology Med: Finasteride Antibiotic Allergy: none Blood Thinner:none Allergies No Known Allergies Allergy (Verified 04/19/23 09:32) Medication List - Last Reconciled 04/19/23 by Tato Alvarenga MD fluticasone propion-salmeterol 250-50 mcg/dose (Wixela Inhub) 1 inh inhalation BID 30 days lisinopril-hydrochlorothiazide 20-12.5 mg 1 tab PO DAILY pravastatin 40 mg PO DAILY vitamins A,C,Q-igcr-xjkmar 4,296 mcg-226 mg-90 mg (PreserVision AREDS) 1 cap PO BID HPI HPI Comments History of Present Illness Details Ephraim is a very pleasant male. He is a patient of Dr Coronado. He is seen in the office today for the following urologic conditions. - prostate cancer Telemedicine Evaluation 15 min Consultation Doximity Noel Video attempted PSA remains well controlled - 0.13 Continue 4 month follow-up till 2023 Discussed importance of early PSA control out to 3 years May try coming off finasteride Prostate cancer 07/07 Intermediate Risk Grade Group 3- EXBRT 08/08 with short term hormones PSA 03/09 7.5 F 9%, 11/08 0.2 T9, 03/10 0.2 T 190, 07/10 0.2, 11/09 0.2, 04/12 0.13 Initial evaluation for elevated PSA 04/08 Prostate biopsy performed 07/07 - primary Monroe score 4+3 Neha score 3+3 5% right apex medial, 3+4 90% right apex lateral, 80% right mid lateral, 60% right mid medial, 80% right base lateral, 4+3 70% right base medial Number of positive cores 6 - % of tissue involved 32% Perineural invasion positive, LVI negative Imaging - 03/09 MRI CDI - right apical zone 1.5 cm PI-RADS 5 no evidence of extracapsular extension External Beam Radiation - 08/08 Dr Dhaliwal Therapeutic plan - PSA followup [facility] Medical History COPD (chronic obstructive pulmonary disease) Pleural effusion Cough Smoker Thrombocytopenia Obesity HTN (hypertension) Hyperlipidemia Hx of colonic polyps Inguinal hernia Elevated PSA Prostate nodule Surgical History H/O colonoscopy History of hernia repair Social History Patient Tobacco Use Status: Current everyday Tobacco user Tobacco use type: Cigarette Cigarettes Per Day: 5 Years Smoked: 50 Review of Systems Const All systems reviewed & are unremarkable except as noted in HPI and below Reports no additional complaints Resp Reports no additional complaints GI Reports no additional complaints Reports as per HPI Musc Reports no additional complaints Physical Exam Telemedicine evaluation Appropriate responses Regular breathing rate and rhythm HEENT Head: Yes normal to inspection Ears: hearing grossly normal bilaterally Eyes General: appearance normal, both eyes and all related structures Neck Neck: Yes normal visual inspection Chest Chest palpation & inspection: normal inspection of the chest Resp Effort & Inspection: normal respiratory effort and able to speak in complete sentences Assessment & Plan Assessment & Plan (1) Prostate cancer: Comment: 07/07 intermediate risk prostate cancer 08/08 EXBRT w 6m GnRH Code(s): C61 - Malignant neoplasm of prostate Plan Four month follow-up PSA Orders: Orders Prostate Specific Antigen 4 Months C61 - Malignant neoplasm of prostate Medications: Discontinued finasteride daily Discontinued Reason: Doctor's Order 5 mg PO DAILY 90 tabs 1RF 90 days N13.8 - Other obstructive and reflux uropathy, N40.1 - Benign prostatic hyperplasia with lower urinary tract symptoms, R33.9 - Retention of urine, unspecified Patient Instructions: Imaging studies, laboratory and physical exam results were discussed and reviewed in detail. No major barriers to patient understanding were identified. An opportunity to ask questions regarding the treatment plan was provided. All questions were answered. The patient expressed understanding and agreement with the above treatment plan. The patient is aware they should contact our office by phone for worsening of their current condition or the appearance of new urologic symptoms. Compliance is encouraged with any medications and followup testing that is ordered. It is a privilege to participate in the urologic care of your patient. If you have any questions or concerns regarding treatment for the above conditions, or other urologic issues, please do not hesitate to contact me. The office telephone contact is [phone]. This note is constructed using voice recognition software. While every effort has been made to ensure accuracy peer specialist errors may have been included. Yours sincerely, Dr Ttao Alvarenga MD, [facility] - Urology Providers of Expert, Compassionate Care for the Genitourinary System Telehealth Telehealth Location of provider rendering services: practice address Location of patient: address on file Patient Identification confirmed using: Name, : Yes Telehealth method: video Patient verbally consented to treatment: Yes Patient verbally consented to billing insurance company: Yes Patient informed of any privacy concerns related to visit: Yes Coding Level of Care Code Tele Est Pt Level 4 (89795) Diagnoses Prostate cancer C61
== END 2023-04-19 13:57 | disposition home or self-care (01) ==
LOC: HO.HUSH 13:28
PROVIDERS: PCP Internal Medicine; Visit Provider Urology
DX: C61 Malignant neoplasm of prostate (principal)
CPT/HCPCS: 99214